=== PATIENT | male | born 1955 | race Caucasian/White ===

== ENCOUNTER → 2017-01-15 | Outpatient (CLI) | payer OTHER ==
--- NOTE | 2017-01-16 09:41 | RADIOLOGY REPORT PS360 ---
CT CERVICAL SPINE W/O CONT INDICATION: Cervical reticulata the, follow-up surgery CERVICAL RADICULOPATHY ORDERING PHYSICIAN: DOUG BELLE PATIENT AGE: 61 years COMPARISON: None TECHNIQUE: Axial images are obtained without contrast. Sagittal and coronal reformatted images are reviewed as well. FINDINGS: There is slight reversal of the cervical lordosis which may be due to patient positioning or muscle spasm. There is normal alignment. 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 C2-C3: Unremarkable. C3-C4: Mild degenerative disc disease with minimal uncovertebral hypertrophy. C4-C5: Unremarkable. C5-C6: Degenerative disc disease with small disc osteophyte complex superiorly with bulging disc. There is fusion of the facets bilaterally at C5-C6 with small metallic clip in the facet joint bilaterally. There is mild bilateral lateral recess and foraminal narrowing from the disc osteophyte complex and uncovertebral hypertrophy. Borderline canal stenosis at this level. C6-C7: Unremarkable. C7-T1: Unremarkable. The lung apices are clear. No prevertebral soft tissue swelling. No evidence of postsurgical abscess. A few scattered small nodes are present in the neck. IMPRESSION: 1. Mild cervical spondylosis as described above with degenerative disc disease and disc osteophyte complex at C5-C6 with postsurgical changes from prior facet fusion. No postsurgical complications evident. 2. Slight reversal cervical lordosis
== END ==
LOC: RAD 12:38
DX: M54.12 Radiculopathy, cervical region (principal)